=== PATIENT | male | born 1955 | race Two or more races ===

== ENCOUNTER 2017-04-18 22:56 | Emergency (ER) | payer OTHER ==
--- NOTE | ~2017-04-18 | CT2 ---
[facility] A Service of [facility] RADIOLOGY TEXT RESULTS PATIENT: PRITESH BETH LOCATION: [facility] : 57 UNIT #: [id number] AGE: [address]: Michael Erickson MD SEX: M ORDER DR: [id number] [place] [id number] [facility]. [place], [place] [address] [id number] E MR#: [id number] Acc #: [id number] NAME: PRITESH BETH : 1955 SEX: M STUDY DATE/TIME: 04/19/2017 1:53 UNIT: [facility] ROOM: STUDY DESCRIPTION: CT Abd and Pelv W Cont Attending Physician: Michael Erickson M.D. Ordering Physician: Michael Erickson M.D. Primary Care Physician: Primary Care Physician No MEDICAL IMAGING REPORT This report is preliminary unless electronic signature is present EXAM CT abdomen and pelvis with contrast HISTORY Epigastric pain since last night with bloating COMPARISON No comparisons TECHNIQUE The patient was given 100 mL of Isovue 370 and axial 5 mm images were obtained through the abdomen and pelvis. FINDINGS The lung bases are clear. The liver, gallbladder, spleen, pancreas and adrenal glands are normal. The right kidney has three small cysts measuring a centimeter or less in size and the left kidney has one cyst measuring 15 mm in size. The aorta is normal in size and there is no adenopathy. The appendix is normal. The bowel does not show any evidence of obstruction. The patient does have an indirect inguinal hernia on the left side in the sigmoid colon and it is extending down into the hernia. There is no obstruction. There may be a hernia on the right side as well, which contains fat only. IMPRESSION 1. I believe the patient has bilateral indirect inguinal hernias. The left one contains a loop of sigmoid colon. There is no obstruction. The right one contains only fat. There is no evidence of infarction of the fat. 2. Otherwise the study is normal. [facility] A Service of [facility] RADIOLOGY TEXT RESULTS PATIENT: PRITESH BETH LOCATION: [facility] : 57 UNIT #: [id number] AGE: [address]: Michael Erickson MD SEX: M ORDER DR: Dictated by... Fortunato Kim M.D. THIS IS AN ELECTRONICALLY VERIFIED REPORT Fortunato Kim M.D. at 04/19/2017 1:52 PM FEL/to TD: 04/19/2017 12:07 JOB #: [id number] MEDICAL IMAGING REPORT Page 1 of 1 COPY
--- NOTE | ~2017-04-18 | EKG ---
PATIENT: PRITESH BETH UNIT #: [id number] Ventricular Rate: 81 BPM Atrial Rate: 81 BPM P-R Interval: 162 ms QRS Duration: 94 ms Q-T Interval: 348 ms QTC Calculation(Bezet): 404 ms P [place]: 30 degrees Calculated R [place]: -13 degrees Calculated T [place]: 16 degrees Diagnosis Line: Normal sinus rhythm Diagnosis Line: Minimal voltage criteria for LVH, may be normal Diagnosis Line: variant Diagnosis Line: Borderline ECG Diagnosis Line: No previous ECGs available Diagnosis Line: Confirmed by ESTIVEN CLINTON MD ([id number]) on 04/19/2017 Diagnosis Line: 4:49:49 PM INTERPRETING MD: OZ CERVANTES
--- NOTE | ~2017-04-18 | CR72 ---
[facility] Service of [facility] RADIOLOGY TEXT RESULTS PATIENT: PRITESH BETH LOCATION: [facility] : 57 UNIT #: [id number] AGE: [address]: Michael Erickson MD SEX: M ORDER DR: [id number] [facility] [address]. [place], [place] [address] [id number] E MR#: [id number] Acc #: [id number] NAME: PRITESH BETH : 1955 SEX: M STUDY DATE/TIME: 04/18/2017 23:58 UNIT: [facility] ROOM: STUDY DESCRIPTION: CR Chest Single View Portable Attending Physician: Michael Erickson M.D. Ordering Physician: Michael Erickson M.D. Primary Care Physician: Primary Care Physician No MEDICAL IMAGING REPORT This report is preliminary unless electronic signature is present EXAM Portable chest INDICATION Difficulty breathing. Upper abdomen pain since yesterday. FINDINGS A portable view of the chest was obtained. The heart size and vascularity are normal. The lungs are clear. The bones are unremarkable. IMPRESSION No active disease. Dictated by... Fortunato Kim M.D. THIS IS AN ELECTRONICALLY VERIFIED REPORT Fortunato Kim M.D. at 04/19/2017 1:53 PM JOE/marcus TD: 04/19/2017 10:47 JOB #: [id number] MEDICAL IMAGING REPORT Page 1 of 1 COPY
[2017-04-19 00:52] LABS: BASOPHIL% 0.4 % (0-2.5); EOSINOPHIL# 0.1 X10e3 (0-0.7); HEMATOCRIT 50.2 % (38.0-50.0); HEMOGLOBIN 17.2 gm/dL (13.0-16.0); LYMPHOCYTE# 2.1 X10e3 (1.0-3.5); LYMPHOCYTE% 19.1 % (17.0-45.0); MEAN CELL VOLUME 91.8 FL (83-96); MEAN CORPUSCULAR HEMOGLOBIN 31.4 PG (28-34); MEAN CORPUSCULAR HGB CONC 34.2 g/dL (30-36); MEAN PLATELET VOLUME 10.8 FL (6.5-11.5); MONOCYTE# 0.6 X10e3 (0-1.0); MONOCYTE% 5.6 % (3.0-12.0); NEUTROPHIL% 73.9 % (40-75); PLATELET COUNT 125 X10e3 (140-420); RED BLOOD COUNT 5.46 X10e (3.90-5.60); RED CELL DISTRIBUTION WIDTH 12.9 % (11.0-15.5); WHITE BLOOD COUNT 10.8 X10e3 (4.0-10.5)
[2017-04-19 00:53] LABS: DIFF IND NO
[2017-04-19 01:05] LABS: POC - CKMB <1.0 ng/mL (0.0-7.9); POC - TROPONIN <0.05 ng/mL (<=0.05)
[2017-04-19 01:15] LABS: ALBUMIN SERUM 4.5 g/dL (3.5-5.0); BILIRUBIN, DIRECT 0.3 mg/dL (0.0-0.2); BILIRUBIN,INDIRECT 2.2 mg/dL (0.0-0.9); BILIRUBIN,TOTAL 2.5 mg/dL (0.2-2.0); BUN/CREATININE RATIO 12.5; CREATININE SERUM 0.8 mg/dL (0.6-1.4); GLOM FILT RATE Estimated 97.1 mL/min (>60); POTASSIUM 4.4 mmol/L (3.5-5.1); PROTEIN TOTAL SERUM 7.5 g/dL (6.0-8.3)
[2017-06-09] MEDS ORDERED: NO MEDICATIONS (08:59)
[2017-06-11] MEDS ORDERED: VITAMIN D350000 UNIT PO (15:26)
[2017-06-11] MEDS ORDERED: ZESTRIL10 M1 PO (15:26)
[2017-06-11] MEDS ORDERED: LIPITOR20 MG PO (15:26)
[2017-06-11] MEDS ORDERED: FLOMAX0.4 M1 (15:26)
[2017-06-11] MEDS ORDERED: GLUCOPHAGE500 MG PO (15:26)
[2017-06-11] MEDS ORDERED: PRILOSEC PO (15:27)
== END 2017-04-19 02:38 | disposition home or self-care (01) ==
LOC: CED 22:56
PROVIDERS: Emergency Medicine
DX: K40.20 Bilateral inguinal hernia, without obstruction or gangrene, not specified as recurrent (principal)
CPT/HCPCS: 36415; 71010; 74177; 80048; 80076; 82553; 84484; 85025; 85379; 86677; 93005; 96361; 96374; 99285; C9113; Q9967

== ENCOUNTER → 2017-06-05 | Outpatient (CLI) | payer OTHER ==
[~2017-06-05] MED LIST: FLOMAX0.4 M1; GLUCOPHAGE500 MG PO; LIPITOR20 MG PO; NO MEDICATIONS; PRILOSEC PO; VITAMIN D350000 UNIT PO; ZESTRIL10 M1 PO
--- NOTE | ~2017-06-05 | US115 ---
[facility] A Service of [facility] RADIOLOGY TEXT RESULTS PATIENT: PRITESH BETH LOCATION: [facility] : 57 UNIT #: [id number] AGE: [address]: Darrick Villanueva MD SEX: M ORDER DR: [id number] [facility] [address] [place], [place] [address] [id number] O MR#: [id number] Acc #: [id number] NAME: PRITESH BETH : 1955 SEX: M STUDY DATE/TIME: 06/05/2017 14:52 UNIT: [facility] ROOM: STUDY DESCRIPTION: US Scrotum and Contents Attending Physician: Darrick Villanueva M.D. Referring Physician: Darrick Villanueva M.D. Ordering Physician: Darrick Villanueva M.D. Primary Care Physician: No Primary Care Physician MEDICAL IMAGING REPORT This report is preliminary unless electronic signature is present EXAM Testicular ultrasound bilateral 06/05/2017. INDICATIONS Right-sided scrotal swelling for a year, increased symptoms the past 2 weeks. TECHNIQUE Sonographic imaging of the testicles was performed bilaterally, utilizing villaseñor-scale, color Doppler, and spectral analysis. COMPARISON No comparisons. Correlation is made with CT 04/19/2017. FINDINGS The right testicle measures 3.7 cm long axis, and the left 4 cm. Both testicles demonstrate good flow at the time of the study. No evidence of intratesticular mass, orchitis, or epididymitis. There is a trace amount of adalberto-testicular fluid bilaterally. Prior CT demonstrated a left inguinal hernia with bowel within it and the right inguinal hernia containing fat. On ultrasound today in what is labeled the right scrotum, the technologist has demonstrated what appears to be peristalsing bowel in the right hemiscrotum. IMPRESSION 1. Both testicles demonstrate good flow at the time of the study. No evidence of intratesticular mass, orchitis or epididymitis. 2. Imaging findings most characteristic of a right inguinal hernia containing bowel. Recent CT, 04/19/2017, demonstrated a left inguinal hernia containing bowel at that time. [facility] A Service of [facility] & [facility] RADIOLOGY TEXT RESULTS PATIENT: PRITESH BETH LOCATION: [facility] : 57 UNIT #: [id number] AGE: [address]: Darrick Villanueva MD SEX: M ORDER DR: Dictated by... Jack Petersen M.D. THIS IS AN ELECTRONICALLY VERIFIED REPORT Jack Petersen M.D. at 06/06/2017 2:39 PM Maureen TD: 06/06/2017 09:26 JOB #: [id number] MEDICAL IMAGING REPORT Page 1 of 1 COPY
== END | disposition home or self-care (01) ==
LOC: CGUS 14:31
DX: N50.89 Other specified disorders of the male genital organs (principal)
CPT/HCPCS: 76870

== ENCOUNTER → 2017-06-09 | Outpatient (CLI) | payer OTHER ==
[2017-06-09 10:29] LABS: HEMATOCRIT 47.3 % (38.0-50.0); HEMOGLOBIN 16.7 gm/dL (13.0-16.0); MEAN CORPUSCULAR HEMOGLOBIN 31.7 PG (28-34); MEAN CORPUSCULAR HGB CONC 35.2 g/dL (30-36); MEAN PLATELET VOLUME 11.8 FL (6.5-11.5); RED BLOOD COUNT 5.26 X10e (3.90-5.60); RED CELL DISTRIBUTION WIDTH 13.1 % (11.0-15.5); WHITE BLOOD COUNT 8.3 X10e3 (4.0-10.5)
[2017-06-09 11:12] LABS: ALBUMIN SERUM 4.4 g/dL (3.5-5.0); BILIRUBIN,TOTAL 1.7 mg/dL (0.2-2.0); BUN/CREATININE RATIO 17.14; CREATININE SERUM 0.7 mg/dL (0.6-1.4); GLOM FILT RATE Estimated 102.6 mL/min (>60); PROTEIN TOTAL SERUM 7.2 g/dL (6.0-8.3)
== END | disposition home or self-care (01) ==
LOC: CAMB 08:30
PROVIDERS: Surgery
DX: Z01.812 Encounter for preprocedural laboratory examination (principal); K40.90 Unilateral inguinal hernia, without obstruction or gangrene, not specified as recurrent
CPT/HCPCS: 36415; 80053; 85027

== ENCOUNTER → 2017-06-15 | Day surgery (SDC) | payer OTHER ==
--- NOTE | ~2017-06-15 | OR ---
Unit #: [id number] #: [id number] Patient: PRITESH BETH [id number] [address] [address] [id number] O MR#: [id number] NAME: PRITESH BETH ROOM: Date of Procedure: 06/15/2017 Admission Date: 06/15/2017 Surgeon: Darrick Villanueva M.D. : 1955 Attending Physician: Darrick Villanueva M.D. Primary Care Physician: Primary Care Physician No OPERATIVE REPORT PREOPERATIVE DIAGNOSIS Incarcerated right-sided indirect inguinal hernia. POSTOPERATIVE DIAGNOSES 1. Incarcerated right-sided indirect inguinal hernia. 2. Left-sided incarcerated indirect inguinal hernia. PROCEDURES PERFORMED 1. Laparoscopic preperitoneal inguinal hernia repair of right-sided incarcerated indirect inguinal hernia. 2. Left side preperitoneal inguinal hernia repair of incarcerated indirect left inguinal hernia. COMPENSATION CONSULTING MANAGER Dr. Cifuentes. ANESTHESIA General anesthesia. ESTIMATED BLOOD LOSS Minimal. IV FLUIDS 800 crystalloid. COMPLICATIONS None. INDICATIONS FOR PROCEDURE The patient is a 61-year-old gentleman with a complex inguinal hernia. He presents for laparoscopic repair. DESCRIPTION OF PROCEDURE The patient was taken to the operating theater and placed in supine position. General anesthesia was induced. The abdomen was prepped and draped. Infraumbilical incision was then made. A small incision was made in the anterior sheath. I created the preperitoneal space in the right side with blunt dissection. A Veress needle was placed intra-abdominally. The abdomen was insufflated to 15 mmHg with CO2. I placed a 5-mm port. The patient was placed in Trendelenburg. I identified bilateral indirect inguinal hernias, where the right-sided indirect incarcerated, and left-sided indirect incarcerated. I reduced these. By placing an another Unit #: [id number] #: [id number] Patient: PRITESH BETH 5 mm port, I was able to pull the bowel from the incarcerated indirect hernia. I thus released the pneumoperitoneum. Using the AutoSuture balloon dissection system, I created the preperitoneal space bilateral. I placed two 5 mm ports in the midline. I dissected the right groin, identifying the lateral space, identified the cord. The cord was skeletonized and the hernia sac from the cord. I transected the hernia sac and then ligated the proximal sac. This then reduced the peritoneal reflection. I identified Dane ligament. I placed a large 3DMax into position. This was anteriolized and covered the direct and indirect spaces nicely. This was secured to Dane ligament as well as the lateral anterior musculature with a SorbaFix Tacker. I then went to the other side of the table, did a similar dissection on the left. I identified the lateral space. The cord was skeletonized. The hernia sac from the cord, transected, and then ligated with an Endoloop, thus reducing the indirect hernia. I reduced the peritoneal reflection. I identified Dane ligament. I placed a large 3DMax mesh into position. This was anteriolized and secured to Dane ligament as well as lateral anterior musculature. I then released the pneumopreperitoneum with care taken to avoid the peritoneum sliding posterior to the mesh. Hemostasis was adequate. I removed the ports under direct vision and closed the fascia with 0 Vicryl and the skin with 4-0 Vicryl. The patient tolerated the procedure well and sent to recovery room in good condition. Dictated by... Isiah Connell/fred TD: 06/15/2017 14:05 JOB #: [id number] OPERATIVE REPORT Page 1 of 1 X Darrick Villanueva MD X PROCEDURE OPERATIVE NOTE
[2017-06-15 06:30] LABS: HEMATOCRIT 47.9 % (38.0-50.0); HEMOGLOBIN 16.7 gm/dL (13.0-16.0); MEAN CELL VOLUME 90.3 FL (83-96); MEAN CORPUSCULAR HEMOGLOBIN 31.6 PG (28-34); MEAN PLATELET VOLUME 11.4 FL (6.5-11.5); RED BLOOD COUNT 5.3 X10e (3.90-5.60); WHITE BLOOD COUNT 7.5 X10e3 (4.0-10.5)
== END | disposition home or self-care (01) ==
LOC: CSUR 05:46
PROVIDERS: Surgery
DX: K40.00 Bilateral inguinal hernia, with obstruction, without gangrene, not specified as recurrent (principal); E11.9 Type 2 diabetes mellitus without complications; I10 Essential (primary) hypertension; K21.9 Gastro-esophageal reflux disease without esophagitis; Z79.84 Long term (current) use of oral hypoglycemic drugs; Z79.899 Other long term (current) drug therapy
CPT/HCPCS: 82947; 85027; C1781; J0330; J0690; J1100; J1170; J2250; J2405; J2550; J2710; J3010

== ENCOUNTER → 2017-07-17 | Outpatient (CLI) | payer OTHER ==
--- NOTE | ~2017-07-17 | CR63 ---
[facility] A Service of [facility] RADIOLOGY TEXT RESULTS PATIENT: PRITESH BETH LOCATION: [facility] : 57 UNIT #: [id number] AGE: [address]: Wilfred Agrawal SEX: M ORDER DR: [id number] [facility] [address] [place], [place] [address] [id number] O MR#: [id number] Acc #: [id number] NAME: PRITESH BETH : 1955 SEX: M STUDY DATE/TIME: 07/17/2017 9:39 UNIT: [facility] ROOM: STUDY DESCRIPTION: CR Chest 2 View Attending Physician: Wilfred Agrawal A.P.R.N. Referring Physician: Wilfred Agrawal A.P.R.N. Ordering Physician: Wilfred Agrawal A.P.R.N. Primary Care Physician: Wilfred Agrawal A.P.R.N. MEDICAL IMAGING REPORT This report is preliminary unless electronic signature is present EXAM Chest 07/17/2017, [facility] HISTORY 61-year-old male patient with cough past 2 weeks. Patient has history of high blood pressure. COMPARISON Chest 04/18/2017 FINDINGS Two-view chest demonstrates normal stable cardiac size and configuration. Aorta appears normal. Hilar structures are preserved. Right lung is clear. Suggestion of minimal infiltrate left lung base with associated discoid atelectasis. Correlate clinically. IMPRESSION Probable minimal pneumonia left lung base. Correlate clinically with short-interval followup if clinically indicated. Dictated by... Thomas Estrada M.D. THIS IS AN ELECTRONICALLY VERIFIED REPORT Thomas Estrada M.D. at 07/19/2017 12:02 PM VARGAS/yao TD: 07/17/2017 20:44 JOB #: [id number] MEDICAL IMAGING REPORT Page 1 of 1 COPY
--- NOTE | ~2017-07-17 | EKG ---
PATIENT: PRITESH BETH UNIT #: [id number] Ventricular Rate: 69 BPM Atrial Rate: 69 BPM P-R Interval: 158 ms QRS Duration: 104 ms Q-T Interval: 398 ms QTC Calculation(Bezet): 426 ms P [place]: 71 degrees Calculated R [place]: 28 degrees Calculated T [place]: 50 degrees Diagnosis Line: Normal sinus rhythm Diagnosis Line: Normal ECG Diagnosis Line: When compared with ECG of 19-APR-2017 00:42, Diagnosis Line: No significant change was found Diagnosis Line: Confirmed by KARLEE STEELE MD ([id number]) on 07/19/2017 Diagnosis Line: 10:58:15 PM INTERPRETING MD: IVETTE CERVANTES
== END | disposition home or self-care (01) ==
LOC: CECH 07-15 10:45 → CRAD 09:21 → CECH 10:00
DX: I10 Essential (primary) hypertension (principal); R06.02 Shortness of breath
CPT/HCPCS: 71020; 93005; 93306